=== PATIENT | female | born 1965 | race Caucasian/White ===

== ENCOUNTER 2017-02-22 11:38 | Emergency (ER) | payer MEDICAID ==
[~2017-02-22] VITALS: Ht 154.9 cm; Wt 90.7 kg
[~2017-02-22 11:38] MED LIST: IBUPROFEN600 MG PO; MOTRIN IB200 MG PO; PENICILLIN V P500 MG PO; TRAMADOL HCL50 MG PO
[2017-02-22] MEDS ORDERED: CYMBALTA60 MG PO (11:59)
== END 2017-02-22 18:40 | disposition home or self-care (01) ==
LOC: ED 11:38
DX: Z00.8 Encounter for other general examination (principal); I10 Essential (primary) hypertension; E11.9 Type 2 diabetes mellitus without complications; E03.9 Hypothyroidism, unspecified; Z87.891 Personal history of nicotine dependence; Z79.899 Other long term (current) drug therapy
CPT/HCPCS: 80053; 80176; 81001; 84443; 84703; 85025; 99283; G0480

== ENCOUNTER 2017-06-10 18:10 | Emergency (ER) | payer OTHER ==
[~2017-06-10] VITALS: Ht 154.9 cm; Wt 102.1 kg
[~2017-06-10 18:10] MED LIST changes: +CYMBALTA60 MG PO
[2017-06-10] MEDS ORDERED: TRAZODONE HCL150 MG PO (19:38)
[2017-06-10] MEDS ORDERED: LAMOTRIGINE25 MG PO (19:38)
[2017-06-10] MEDS ORDERED: RISPERDAL0.5 MG PO (19:38)
[2017-06-10] MEDS ORDERED: DICLOFENAC SODI75 MG PO (20:16)
[2017-06-10] MEDS ORDERED: CYCLOBENZAPRINE10 MG PO (20:16)
== END 2017-06-10 20:23 | disposition home or self-care (01) ==
LOC: ED 18:10
DX: M54.5 Low back pain (principal); F32.9 Major depressive disorder, single episode, unspecified; Z79.899 Other long term (current) drug therapy
CPT/HCPCS: 99283

== ENCOUNTER 2017-08-31 11:35 | Emergency (ER) | payer OTHER ==
[~2017-08-31] VITALS: Ht 154.9 cm; Wt 102.1 kg
[~2017-08-31 11:35] MED LIST changes: +CYCLOBENZAPRINE10 MG PO; +DICLOFENAC SODI75 MG PO; +LAMOTRIGINE25 MG PO; +RISPERDAL0.5 MG PO; +TRAZODONE HCL150 MG PO
[2017-08-31] MEDS ORDERED: NAPHCON-A EYE D15 ML OPTH (12:49)
[2017-08-31] MEDS ORDERED: AMOXICILLIN500 MG PO (12:49)
== END 2017-08-31 13:05 | disposition home or self-care (01) ==
LOC: ED 11:35
DX: B30.9 Viral conjunctivitis, unspecified (principal); J32.9 Chronic sinusitis, unspecified; H69.90 Unspecified Eustachian tube disorder, unspecified ear; F32.9 Major depressive disorder, single episode, unspecified; I10 Essential (primary) hypertension; E11.9 Type 2 diabetes mellitus without complications; Z87.891 Personal history of nicotine dependence; Z79.899 Other long term (current) drug therapy
CPT/HCPCS: 99283

== ENCOUNTER 2017-11-14 12:21 | Emergency (ER) | payer OTHER ==
[~2017-11-14] VITALS: Ht 154.9 cm; Wt 102.1 kg
[~2017-11-14 12:21] MED LIST changes: +AMOXICILLIN500 MG PO; +NAPHCON-A EYE D15 ML OPTH
[2017-11-14] MEDS ORDERED: NORCO 5-325 TA1 EACH PO (13:47)
[2017-11-14] MEDS ORDERED: IBU600 MG PO (13:47)
== END 2017-11-14 14:13 | disposition home or self-care (01) ==
LOC: ED 12:21
DX: K08.89 Other specified disorders of teeth and supporting structures (principal); I10 Essential (primary) hypertension; E11.9 Type 2 diabetes mellitus without complications; F32.9 Major depressive disorder, single episode, unspecified; E03.9 Hypothyroidism, unspecified; Z87.891 Personal history of nicotine dependence; Z79.899 Other long term (current) drug therapy
CPT/HCPCS: 99283

== ENCOUNTER 2019-08-23 08:55 | Emergency (ER) | payer OTHER ==
[~2019-08-23] VITALS: Ht 154.9 cm; Wt 113.4 kg
[~2019-08-23 08:55] MED LIST changes: +IBU600 MG PO; +NORCO 5-325 TA1 EACH PO
--- OUTSIDE RECORDS SUMMARY | 2019-08-23 08:58 | XMS ---
PreManage Notification: [employer] Internal Audit Director Events No recent Security Events currently on file CRITERIA MET - Group Notification - [facility] - Has Care Guidelines CARE PROVIDERS There are no care providers on record at this time. Guidelines Source: [facility] [place] Guidelines Date: 08/22/2019 Other Information: Receives mental health services through [facility].\T\nbsp; Please contact [facility] for any mental health concerns:\T\nbsp; [place]-[phone]\T\nbsp; [place] [phone]\T\nbsp; Crisis line at [phone].\T\nbsp; Care History Medical/Surgical 09/01/2017 [facility] - Please contact [facility] CHW when patient is seen in the ED. Ext [phone]. Care Recommendation: This patient has had 5 or more Emergency Department visits in the last 12 months. Patient requires education on the scope and purpose of the ED as an acute care provider not a Primary Care Provider and should not be utilized for chronic conditions. If patient returns to ED please contact Community Health WorkerKristine at [phone]. These are guidelines and the provider should exercise clinical judgment when providing care E.D. VISIT COUNT (12 MO.) 1 [facility]. TOTAL 1 NOTE: Visits indicate total known visits. ED/UCC VISIT TRACKING (12 MO.) 08/23/2019 08:55 [facility] [place] TYPE: Emergency COMPLAINT: - BACK PAIN NON INJURY INPATIENT VISIT TRACKING (12 MO.) No inpatient visits to display in this time frame [email or web address]
[2019-08-23] MEDS ORDERED: HYDROXYZINE PAM25 MG PO (09:13)
[2019-08-23] MEDS ORDERED: ESCITALOPRAM OX10 MG PO (09:13)
== END 2019-08-23 10:53 | disposition home or self-care (01) ==
LOC: ED 08:55
DX: M54.6 Pain in thoracic spine (principal); I10 Essential (primary) hypertension; E11.9 Type 2 diabetes mellitus without complications; F32.9 Major depressive disorder, single episode, unspecified; Z87.891 Personal history of nicotine dependence; Z90.49 Acquired absence of other specified parts of digestive tract; Z79.899 Other long term (current) drug therapy
CPT/HCPCS: 81001; 99283; A9270

== ENCOUNTER 2020-08-01 12:03 | Emergency (ER) | payer OTHER ==
[~2020-08-01] VITALS: Ht 154.9 cm; Wt 104.3 kg
[~2020-08-01 12:03] MED LIST changes: +ESCITALOPRAM OX10 MG PO; +HYDROXYZINE PAM25 MG PO
--- OUTSIDE RECORDS SUMMARY | 2020-08-01 12:08 | XMS ---
PreManage Notification: SHI WHIT[employer] Security Ammonia Box Tender Events No recent Security Events currently on file CRITERIA MET - Group Notification - [facility] [place] CARE PROVIDERS SONYA [facility] 08/24/2019-Current PHONE: [phone] Guidelines Source: [facility] Guidelines Date: 08/22/2019 Other Information: Receives mental health services through [facility].\T\nbsp; Please contact [facility] for any mental health concerns:\T\nbsp; Inrjzntct-[phone]\T\nbsp; [place] [phone]\T\nbsp; Crisis line at [phone].\T\nbsp; E.D. VISIT COUNT (12 MO.) [facility] TOTAL 2 NOTE: Visits indicate total known visits. ED/UCC VISIT TRACKING (12 MO.) 08/01/2020 12:04 [facility] [place] TYPE: Emergency COMPLAINT: - VOMITTING, ABDOMINAL PAIN 08/23/2019 08:55 [facility] [place] TYPE: Emergency COMPLAINT: - BACK PAIN NON INJURY DIAGNOSES: - Other residential (current) drug therapy - Personal history of nicotine dependence - Major depressive disorder, single episode, unspecified - Acquired absence of other specified parts of digestive tract - Essential (primary) hypertension - Pain in thoracic spine - Type 2 diabetes mellitus without complications INPATIENT VISIT TRACKING (12 MO.) No inpatient visits to display in this time frame [id number]
== END 2020-08-01 14:38 | disposition home or self-care (01) ==
LOC: ED 12:03
DX: R10.13 Epigastric pain (principal); R11.2 Nausea with vomiting, unspecified; R19.7 Diarrhea, unspecified; R94.5 Abnormal results of liver function studies; I10 Essential (primary) hypertension; E11.9 Type 2 diabetes mellitus without complications; E03.9 Hypothyroidism, unspecified; Z87.891 Personal history of nicotine dependence; Z79.899 Other long term (current) drug therapy
CPT/HCPCS: 80053; 83690; 85025; 96374; 99284-25; J2405; J7030

== ENCOUNTER 2021-02-27 16:05 | Observation (INO) | payer OTHER ==
[~2021-02-27] VITALS: Ht 154.9 cm; Wt 105.2 kg
--- OUTSIDE RECORDS SUMMARY | 2021-02-27 16:12 | XMS ---
PreManage Notification: SHI WH[employer] Security Child Care Specialist Events No recent Security Events currently on file CRITERIA MET - [facility] - 2 Visits in 30 Days - Group Notification CARE PROVIDERS SONYA [facility] 08/02/2020-Current PHONE: [phone] Care Guidelines exist for the following facilities: [facility] ( 08/22/2019 ) [place] VISIT COUNT (12 MO.) [address] [place] [address] TOTAL 3 NOTE: Visits indicate total known visits. ED/UCC VISIT TRACKING (12 MO.) 02/27/2021 16:06 [facility] [place] TYPE: Emergency COMPLAINT: - BLACKOUT EPISODES, HEADACHE, DIZZINESS 02/25/2021 16:57 [facility] [place] TYPE: Emergency COMPLAINT: - DIZZINESS/BLACKING OUT 08/01/2020 12:04 [facility] [place] TYPE: Emergency COMPLAINT: - ABDOMINAL PAIN DIAGNOSES: - Hypothyroidism, unspecified - Epigastric pain - Epigastric pain - Diarrhea, unspecified - Other intermodal owner operator truck driver (current) drug therapy - Essential (primary) hypertension - Unspecified abdominal pain - Personal history of nicotine dependence - Abnormal results of liver function studies - Nausea with vomiting, unspecified - Type 2 diabetes mellitus without complications INPATIENT VISIT TRACKING (12 MO.) No inpatient visits to display in this time frame [id number]
--- NOTE | 2021-02-27 22:02 | NUR ---
PT ARRIVES TO CCU ROOM 130 FOR DIAGNOSIS OF HYPEROSMOLAR NONKETOTIC HYPERLYCEMIA. PT ARRIVES AWAKE AND ALERT, WALKS SELF INTO ROOM FROM [facility] AND INTO BATHROOM TO VOID, THEN BACK INTO THE BED.
--- NOTE | 2021-02-27 23:51 | NUR ---
PT AWAKE IN BED, WATCHING TV. JUST FINISHED EATING HER BROTH AND JELLO. C/O BEING HOT, TEMPERATURE IN ROOM TURNED DOWN.
--- NOTE | 2021-02-28 01:00 | NUR ---
IN TO DO BLOOD SUGAR AND ASSESSMENT. PT DENIES NEEDS.
--- NOTE | 2021-02-28 02:43 | NUR ---
assisted patient up to bsc. patient moves easily. appears slightly sob when returning to bed but reports just feeling tired. 350 mls concentrated urine out.
--- NOTE | 2021-02-28 03:33 | NUR ---
IN TO CHECK ON PT, DO ASSESSMENT. PT REPORTS FEELING LIKE FINGERS ARE SWELLING UP FROM IVF. NO OTHER COMPLAINTS.
--- NOTE | 2021-02-28 07:47 | NUR ---
PATIENT UP TO BSC WITH SBA. BACK TO BED, CALL LIGHT IN REACH
--- NOTE | 2021-02-28 11:00 | NUR ---
Spoke with pt and she resides in an apartment, 2 steps in. She lives alone. Brother lives in town and he drives her to appts, shopping, etc. He reported pt has a drinking issue, pt denies this and declines Juan. Pt. does not have pcp and appt scheduled with Dr Owen after I gave her a provider list and she chose [facility]. EOCCO formilary reviewed with Dr. Mayes and RX completed for diabetic supplies. Called [facility] and they state their fax is down. They request and electronic rx. I marjorie ask Dr. Mayes. Pt states she is financially ok. At time (every 3-4 mo she uses the [facility] for perishibles) Discussed DM education and pt states several family members have DM. 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 States she did not realiz e she has diabetes. She did notice she was drinking extra fluid and voiding alot. Plans on dc to home. Denies other needs. No DME at home. Brother will assist her.
--- NOTE | 2021-02-28 11:47 | NUR ---
Pt does not know her new phone number, I attempted to call her brother and message states he is not accepting phone calls. Rn updated and will attempt to get pts new number when brother calls in.
--- NOTE | 2021-02-28 12:59 | NUR ---
SBA FROM BED TO CHAIR, LEGS ELEVATED. VITALS CHARTED. CALL LIGHT IN REACH
--- NOTE | 2021-02-28 13:55 | NUR ---
MED REC COMPLETE
[2021-02-28] MEDS ORDERED: GLIPIZIDE5 MG PO (14:14)
--- NOTE | 2021-02-28 15:19 | NUR ---
Spoke with brother and pts' new phone number is [phone]. Updated I scheduled pt with Dr. Owen for a pcp. He is on his way to pick pt up.
[2021-02-28] MEDS ORDERED: ONE TOUCH LANC1 EACH MISC (15:25)
[2021-02-28] MEDS ORDERED: [UNRECOGNIZED DRUG - OTHER] MISC (15:26)
[2021-02-28] MEDS ORDERED: ONE TOUCH ULTR1 EAC3 MISC (15:26)
[2021-02-28] MEDS ORDERED: ONE TOUCH ULTR1 EACH MISC (15:27)
== END 2021-02-28 16:05 | disposition home or self-care (01) ==
LOC: ED 16:05 → CCU 16:07
PROVIDERS: ADMIT Internal Medicine; ATTEND Internal Medicine
DX: E11.01 Type 2 diabetes mellitus with hyperosmolarity with coma (principal); E86.0 Dehydration; I10 Essential (primary) hypertension; E03.9 Hypothyroidism, unspecified; Z87.891 Personal history of nicotine dependence; Z20.822 Contact with and (suspected) exposure to COVID-19
CPT/HCPCS: 70450; 80048; 80053; 81001; 82010; 82803; 83735; 85025; C9113; C9803; G0480; J1815; J2405; J3475; J7030; J7042; U0003

== ENCOUNTER 2021-11-06 12:25 | Emergency (ER) | payer OTHER ==
[~2021-11-06] VITALS: Ht 154.9 cm; Wt 95.4 kg
[~2021-11-06 12:25] MED LIST changes: +GLIPIZIDE5 MG PO; +ONE TOUCH LANC1 EACH MISC; +ONE TOUCH ULTR1 EAC3 MISC; +ONE TOUCH ULTR1 EACH MISC; +[UNRECOGNIZED DRUG - OTHER] MISC
--- OUTSIDE RECORDS SUMMARY | 2021-11-06 12:32 | XMS ---
PreManage Notification: SHI WHITESIDE Security Web Knitter Events 1 event(s) in the past 18 months Most recent security events: Elopement at [facility] 02/25/2021 16:57 - Other Details: PATIENT LWBS CRITERIA MET - Group Notification CARE PROVIDERS ИВАН HASSAN [facility] 08/02/2020-Current PHONE: [phone] ASHLEE JONES [facility] 03/03/2021-Current PHONE: Unknown Care Guidelines exist for the following facilities: [facility] ( 08/22/2019 ) Care History Medical/Surgical 03/03/2021 [facility] - Patient is currently established with [facility]. If patient is seen in the ED during business hours. Please contact CHWs at [facility]. Care Recommendation: If this patient has had 5 or more Emergency Department visits in the last 12 months.\T\nbsp; Patient will require education on the scope and purpose of the ED as an acute care provider not a Primary Care Provider and should not be utilized for chronic conditions.\T\nbsp; These are guidelines and the provider should exercise clinical judgment when providing care. E.D. VISIT COUNT (12 MO.) 3 [facility] TOTAL 3 NOTE: Visits indicate total known visits. ED/UCC VISIT TRACKING (12 MO.) 11/06/2021 12:26 [facility] [place] TYPE: Emergency COMPLAINT: - DIABETIC ISSUE 02/27/2021 16:06 [facility] [place] TYPE: Emergency COMPLAINT: - BLACKOUT EPISODES, HEADACHE, DIZZINESS 02/25/2021 16:57 [facility] [place] TYPE: Emergency COMPLAINT: - DIZZINESS/BLACKING OUT INPATIENT VISIT TRACKING (12 MO.) 02/27/2021 16:07 [facility] [place] TYPE: Observation COMPLAINT: - HYPEROSMOLAR NON KETOTIC COMA DIAGNOSES: - Type 2 diabetes mellitus with hyperosmolarity with coma - Dehydration - Essential (primary) hypertension - Personal history of nicotine dependence - Hypothyroidism, unspecified [id number]
[2021-11-06] MEDS ORDERED: METFORMIN HCL500 M2 PO (13:22)
[2021-11-06] MEDS ORDERED: GLIPIZIDE5 MG PO (14:13)
== END 2021-11-06 14:30 | disposition home or self-care (01) ==
LOC: ED 12:25
DX: E11.65 Type 2 diabetes mellitus with hyperglycemia (principal); R79.89 Other specified abnormal findings of blood chemistry; I10 Essential (primary) hypertension; E03.9 Hypothyroidism, unspecified; Z87.891 Personal history of nicotine dependence; Z79.899 Other long term (current) drug therapy; Z79.84 Long term (current) use of oral hypoglycemic drugs
CPT/HCPCS: 36415; 80053; 85025; 99284